=== PATIENT | male | born 1990 | race American Indian/Alaskan Native ===

== ENCOUNTER 2017-01-07 21:56 | Emergency (ER) | payer SELFPAY ==
[2017-01-07 22:30] VITALS: BP 160/82
== END 2017-01-08 00:16 | disposition left against medical advice (07) ==
LOC: ED 21:56
DX: R07.89 Other chest pain (principal); Z53.21 Procedure and treatment not carried out due to patient leaving prior to being seen by health care provider
CPT/HCPCS: 93005; 93010

== ENCOUNTER 2018-03-16 12:27 | Emergency (ER) | payer OTHER ==
[2018-03-16 12:49] VITALS: BP 144/76
--- NOTE | 2018-03-16 14:34 | Emergency Department Report ---
HPI - General Chief Complaint: Earache Time Seen by Provider: 03/16/18 14:09 - HPI HPI: 27-year-old male presents to the emergency department with a one-day history of severe left ear pain. Patient also says that he feels like it is ringing and popping. He did not take anything for her symptoms for his presentation. He does not have a primary care physician. No recent travel or sick contacts at home. ED Past Medical Hx - Past Medical History Hx Psychiatric Treatment: Yes (Bipolar, Anger Management- pt denies DX) - Surgical History Past Surgical History?: No - Social History Smoking Status: Current Every Day Smoker Substance Use Type: Alcohol, Marijuana - Medications Home Medications: Home Medications Medication Instructions Recorded Confirmed Last Taken Type Fluticasone [Flonase] 1 spray NS QDAY #1 bottle 03/16/18 Unknown Rx Neomy/Polymyx B/Hc (Otic) Soln 4 drops Q6H #1 bottle 03/16/18 Unknown Rx [Cortisporin (Otic) Soln] RX: Amoxicillin [Trimox CAP] 500 mg PO Q8H #30 capsule 03/16/18 Unknown Rx ED Review of Systems ROS: Stated complaint: SEVERE EAR PAIN Other details as noted in HPI Comment: All other systems reviewed and negative Constitutional: denies: chills, fever Eyes: denies: eye pain, eye discharge, vision change ENT: ear pain. denies: throat pain Respiratory: denies: cough, orthopnea Cardiovascular: denies: chest pain, palpitations Gastrointestinal: denies: abdominal pain, vomiting Genitourinary: denies: urgency, dysuria Musculoskeletal: denies: back pain, arthralgia Skin: denies: rash, lesions Neurological: denies: headache, weakness Physical Exam - Physical Exam Vital Signs: Vital Signs 03/16/18 12:42 Temperature 98.8 F Pulse Rate 78 Respiratory 18 Rate Blood Pressure 144/76 O2 Sat by Pulse 98 Oximetry Physical Exam: GENERAL: The patient is well-developed well-nourished. HEENT: Normocephalic. Atraumatic. Patient has moist mucous membranes. Normal-appearing right external ear canal and tympanic membrane. There is some erythema seemed to the distal left external ear canal. There is also some erythema seen to the left tympanic membrane with a decreased light reflex. Boggy nasal mucosa. EYES: Extraocular motions are intact. Pupils are equal and reactive to light bilaterally. NECK: Supple. Trachea is midline. CHEST/LUNGS: Clear to auscultation. There is no respiratory distress noted. HEART/CARDIOVASCULAR: Regular. There is no tachycardia. There is no obvious murmur. ABDOMEN: There is no abdominal distention. SKIN: Skin is warm and dry. NEURO: The patient is awake, alert, and oriented. The patient is cooperative. The patient has no focal neurologic deficits. The patient has normal speech. MUSCULOSKELETAL: There is no tenderness or deformity. There is no evidence of acute injury. ED Course Vital Signs 03/16/18 12:42 Temperature 98.8 F Pulse Rate 78 Respiratory 18 Rate Blood Pressure 144/76 O2 Sat by Pulse 98 Oximetry ED Medical Decision Making - Medical Decision Making Patient presents with acute left ear pain. The proximal half of the left e xternal ear canal is erythematous, as is the tympanic membrane. The patient will be treated for both otitis externa and media. Also the patient makes some complaints of hearing popping and clicking sounds, and along with his boggy nasal mucosa, he will be placed on some Flonase. He is given referrals for primary care. - Differential Diagnosis otitis externa, otitis media, eustachian tube dysfunction Critical Care Time: No Critical care attestation.: If time is entered above; I have spent that time in minutes in the direct care of this critically ill patient, excluding procedure time. ED Disposition Clinical Impression: Otitis externa Otitis media Qualifiers: Otitis media type: unspecified Chronicity: acute Qualified Code(s): H66.90 - Otitis media, unspecified, unspecified ear Disposition: TO HOME OR SELFCARE Is pt being admited?: No Condition: Stable Instructions: Otitis Externa (ED), Otitis Media (ED) Additional Instructions: Follow-up with a primary care physician in the next few days. Return to the emergency Department with any worsening of your symptoms or any acute distress. Prescriptions: RX: Amoxicillin [Trimox CAP] 500 mg PO Q8H #30 capsule Fluticasone [Flonase] 1 spray NS QDAY #1 bottle Neomy/Polymyx B/Hc (Otic) Soln [Cortisporin (Otic) Soln] 4 drops Q6H #1 bottle Referrals: PRIMARY CARE, [Primary Care Provider] - 3-5 Days [facility] [Outside] - 3-5 Days Forms: Work/School Release Form(ED) Time of Disposition: 14:34
== END 2018-03-16 14:41 | disposition home or self-care (01) ==
LOC: ED 12:27
DX: H60.92 Unspecified otitis externa, left ear (principal); H66.92 Otitis media, unspecified, left ear; F31.9 Bipolar disorder, unspecified; F17.200 Nicotine dependence, unspecified, uncomplicated
CPT/HCPCS: 99282